=== PATIENT | male | born 1960 | race Caucasian/White ===

== ENCOUNTER 2017-09-19 18:05 | Emergency (ER) | payer OTHER ==
[~2017-09-19] VITALS: Ht 162.6 cm; Wt 70.7 kg
[2017-09-19 18:15] VITALS: BP 116/74; PULSE 102; TEMP 37.9; O2SAT 94; Ht 162.6 cm; Wt 70.7 kg
== END 2017-09-19 18:55 | disposition left against medical advice (07) ==
LOC: C.EDB 18:06